=== PATIENT | female | born 1980 | race Caucasian/White ===

== ENCOUNTER 2017-10-17 18:22 | Emergency (ER) | payer OTHER, SELFPAY ==
[2017-10-17 18:22] VITALS: BMI 35.1
[2017-10-17 18:35] VITALS: RESP 18; TEMP 98.7
--- NOTE | 2017-10-17 18:56 | ED PDOC ---
HPI: CCC, URI, Sore Throat Time Seen by Provider: 10/17/17 18:44 Chief Complaint (Nursing): Flu-like Symptoms Chief Complaint (Provider): Flu History Per: Patient Additional Complaint(s): 36 yo female, no PMH, presents to ED with c/o fever, chills, n/v/d, abdominal pain, headache, productive cough with yellow sputum x 3 days. Pt did receive Flu shot this year. No medications taken for symptoms thus far. Past Medical History Reviewed: Historical Data, Nursing Documentation, Vital Signs Vital Signs: Last Vital Signs Temp 98.7 F 10/17/17 18:32 Pulse 64 10/17/17 18:32 Resp 18 10/17/17 18:32 BP 146/52 L 10/17/17 18:32 Pulse Ox 99 10/17/17 19:19 - Surgical History Surgical History: Cholecystectomy - Family History Family History: States: Unknown Family Hx - Living Arrangements Living Arrangements: With Family - Social History Current smoker - smoking cessation education provided: No Alcohol: Social Drugs: Denies - Home Medications Home Medications: Ambulatory Orders Medication Instructions Recorded Docusate Sodium [Colace] 100 mg PO Q8 PRN 12/01/14 Oxycodone HCl/Acetaminophen 1 tab PO Q8 PRN 12/01/14 [Percocet 325 mg-5 mg] - Allergies Allergies/Adverse Reactions: Allergies Allergy/AdvReac Type Severity Reaction Status Date / Time No Known Allergies Allergy Unverified 11/28/14 14:28 Curb-65 Severity Score - CURB-65 Severity Score Confusion: No Bun >19mg/dl (>7mmol/L): No Respiratory Rate greater than/equal to 30: No Systolic BP <90 or Diastolic BP less than/equal 60mmHg: No Age >64: No Curb-65 Score: 0 Percentage 30-day mortality: 0.6% Review of Systems ROS Statement: Except As Marked, All Systems Reviewed And Found Negative Constitutional: Positive for: Fever, Chills, Weakness, Malaise ENT: Positive for: Nose Congestion Respiratory: Positive for: Cough Gastrointestinal: Positive for: Nausea, Vomiting, Abdominal Pain, Diarrhea Physical Exam - Reviewed Nursing Documentation Reviewed: Yes Vital Signs Reviewed: Yes - Physical Exam Appears: Positive for: Non-toxic, No Acute Distress, Uncomfortable Head Exam: Positive for: ATRAUMATIC, NORMAL INSPECTION, NORMOCEPHALIC Skin: Positive for: Normal Color, Warm, DRY Eye Exam: Positive for: EOMI, Normal appearance, PERRL ENT: Positive for: Normal ENT Inspection Neck: Positive for: Normal, Painless ROM Cardiovascular/Chest: Positive for: Regular Rate, Rhythm Respiratory: Positive for: CNT, Normal Breath Sounds Gastrointestinal/Abdominal: Positive for: Normal Exam, Bowel Sounds, Soft Back: Positive for: Normal Inspection Extremity: Positive for: Normal ROM Neurologic/Psych: Positive for: Alert, Oriented - ECG O2 Sat by Pulse Oximetry: 99 Medical Decision Making Medical Decision Making: IV access established and treatment initiated with IVF, Toradol and Zofran Pt afebrile, antipyretics withheld. Case endorsed to LE Killian at 2000 pending diagnostic review and re-eval Disposition - Clinical Impression Clinical Impression: Influenza-like symptoms - Patient ED Disposition Is Patient to be Admitted: Transfer of Care - Disposition Disposition: Transfer of Care Disposition Time: 20:00 Condition: STABLE Forms: [email or web address] [facility] ([place])
[2017-10-17] MEDS ORDERED: Sodium Chloride 0.9% 1,000 ML IV STA ×2 (18:57)
[2017-10-17 19:25] LABS: BASO % 0.7 % (0.0-2.0); EOS % 0.7 % (0.0-4.0); HEMOGLOBIN 10.4 g/dL (12.0-16.0); LYMPH # 2.3 K/uL (1.0-4.3); MEAN CELL VOLUME 89.4 fl (81.0-99.0); MEAN CORPUSCULAR HEMOGLOBIN 29.1 pg (27.0-31.0); MEAN CORPUSCULAR HGB CONC 32.6 g/dL (33.0-37.0); MEAN PLATELET VOLUME 9.4 fl (7.2-11.7); MONO # 0.4 K/uL (0.0-0.8); MONO % 7.8 % (0.0-10.0); NEUT # 2.7 K/uL (1.8-7.0); NEUT % 49.8 % (50.0-75.0); RBC 3.56 Mil/uL (3.80-5.20); RED CELL DISTRIBUTION WIDTH 14.1 % (11.5-14.5); WHITE BLOOD COUNT 5.5 K/uL (4.8-10.8)
[2017-10-17 19:52] LABS: SQUAMOUS EPITHIAL 1 /hpf (0-5); URINE BACTERIA RARE (<OCC); URINE BILIRUBIN NEGATIVE (NEGATIVE); URINE BLOOD MODERATE (NEGATIVE); URINE CLARITY SLIGHTY-CLOUDY (Clear); URINE COLOR STRAW (YELLOW); URINE GLUCOSE (UA) NEG (Normal); URINE LEUKOCYTE ESTERASE TRACE Leu/uL (Negative); URINE NITRATE NEGATIVE (NEGATIVE); URINE PROTEIN >=500 mg/dL (NEGATIVE); URINE UROBILINOGEN 0.2-1.0 mg/dL (0.2-1.0)
[2017-10-17 20:00] LABS: ALBUMIN 2.6 g/dL (3.5-5.0); ALT/SGPT 84 U/L (9-52); AMYLASE 100 U/L (30-110); AST/SGOT 62 U/L (14-36); BLOOD UREA NITROGEN 17 mg/dl (7-17); CALCIUM 7.9 mg/dL (8.4-10.2); GFR AFRICAN-AMERICAN > 60; GFR NON-AFRICAN AMERICAN 51; LIPASE 112 U/L (23-300)
[2017-10-17 20:04] LABS: ALB/GLOB RATIO 0.7 (1.0-2.1)
--- NOTE | 2017-10-17 20:07 | ED PDOC ---
- Laboratory Results Result Diagrams: 10/17/17 19:18 10/17/17 19:18 - ECG ECG: Positive for: Viewed By Il ECG Rhythm: Positive for: Sinus Bradycardia (45bpm) O2 Sat by Pulse Oximetry: 99 - Radiology X-Ray: Viewed By Il X-Ray Interpretation: No Acute Disease - Progress ED Course And Treament: Case endorsed to production underwriter from Abhishek LUJAN pending labs, imaging EXAM: US Abdomen Limited, Right Upper Quadrant CLINICAL HISTORY: The patient is a 36 years female; Pain; Abdominal pain; Epigastric; Prior surgery; Surgery date: 6+ months; Surgery type: S/P cholecystectomy; Additional info: Pain, HX of stones 6:57 PM TECHNIQUE: Real-time ultrasound of the right upper quadrant with image documentation. COMPARISON: No relevant prior studies available. FINDINGS: Liver: 17.6 cm. Normal echotexture. Gallbladder: Cholecystectomy. Common bile duct: Upper limits of normal in size measuring up to 6 mm. Pancreas: Unremarkable as visualized. Right kidney: Normal in size. No hydronephrosis. IMPRESSION: Cholecystectomy. Common bile duct is Upper limits of normal in size measuring up to 6 mm. EXAM: CT Abdomen and Pelvis Without Intravenous Contrast CLINICAL HISTORY: 36 years old, female; Pain; Abdominal pain; Flank; Right; Prior surgery; Surgery date: 6+ months; Surgery type: Gb removed; Additional info: Right abd pain TECHNIQUE: Axial computed tomography images of the abdomen and pelvis without intravenous contrast. All CT scans at this facility use one or more dose reduction techniques, viz.: automated exposure control; ma/kV adjustment per patient size (including targeted exams where dose is matched to indication; i.e. head); or iterative reconstruction technique. Coronal and sagittal reformatted images were created and reviewed. COMPARISON: US - RIGHT UPPER QUADRANT 2017-10-17 19:30 FINDINGS: Limitations: Lack of intravenous contrast. Lower thorax: Minimal atelectasis/scarring. Mild interlobular septal thickening. Trace bilateral pleural effusions. ABDOMEN: Liver: Unremarkable. Gallbladder and bile ducts: Cholecystectomy. No significant ductal dilation. Pancreas: Unremarkable. No ductal dilation. Spleen: No splenomegaly. Adrenals: No mass. Kidneys and ureters: No renal calculi. No hydronephrosis. Stomach and bowel: Segmental areas of probable underdistention of LEFT colon. No definite mural thickening. No obstruction. Appendix: Normal caliber. No definite inflammation. PELVIS: Bladder: Unremarkable. No stones. Reproductive: Probable small left ovarian follicle/cyst. ABDOMEN and PELVIS: Intraperitoneal space: No significant fluid collection. No free air. Mild stranding/fascial thickening about within right upper quadrant about duodenum/head of pancreas. Bones/joints: No acute fracture. Soft tissues: Minimal to mild diffuse stranding within subcutaneous tissues. Tiny ventral hernia containing fat. Vasculature: Unremarkable. No aneurysm. Lymph nodes: No pathologically enlarged lymph nodes. IMPRESSION: 1. No definite CT evidence of urolithiasis. 2. Mild stranding/fascial thickening about right upper quadrant. Correlate with amylase/lipase levels to exclude possibility of pancreatitis. 3. Probable early interstitial edema. Clinical correlation is needed. 4. Incidental/non-acute findings are described above. Patient educated on findings, discharged with instructions to follow up PMD 2-3 days. Rx ibuprofen, flonase, promethazine DM given Fluids. Rest. Return precautions given. Disposition - Clinical Impression Clinical Impression: Viral illness - POA Present On Arrival: None - Disposition Referrals: [facility] [Outside] Disposition: Routine/Home Disposition Time: 00:33 Condition: IMPROVED Prescriptions: Fluticasone Nasal [Flonase] 1 actuation NS BID #1 bottle Ibuprofen [Motrin Tab] 1 tab PO Q6 PRN #20 tab PRN Reason: Pain, Moderate (4-7) Promethazine DM [Phenergan DM Syrup] 5 ml PO Q6 PRN #1 bottle PRN Reason: Cough Instructions: Viral Syndrome (ED) Forms: [employer] (Salvadorean) Print Language: BENGALI
--- NOTE | 2017-10-17 23:51 | CT ---
EXAM: CT Abdomen and Pelvis Without Intravenous Contrast CLINICAL HISTORY: 36 years old, female; Pain; Abdominal pain; Flank; Right; Prior surgery; Surgery date: 6+ months; Surgery type: Gb removed; Additional info: Right abd pain TECHNIQUE: Axial computed tomography images of the abdomen and pelvis without intravenous contrast. All CT scans at this facility use one or more dose reduction techniques, viz.: automated exposure control; ma/kV adjustment per patient size (including targeted exams where dose is matched to indication; i.e. head); or iterative reconstruction technique. Coronal and sagittal reformatted images were created and reviewed. COMPARISON: US - RIGHT UPPER QUADRANT 2017-10-17 19:30 FINDINGS: Limitations: Lack of intravenous contrast. Lower thorax: Minimal atelectasis/scarring. Mild interlobular septal thickening. Trace bilateral pleural effusions. ABDOMEN: Liver: Unremarkable. Gallbladder and bile ducts: Cholecystectomy. No significant ductal dilation. Pancreas: Unremarkable. No ductal dilation. Spleen: No splenomegaly. Adrenals: No mass. Kidneys and ureters: No renal calculi. No hydronephrosis. Stomach and bowel: Segmental areas of probable underdistention of LEFT colon. No definite mural thickening. No obstruction. Appendix: Normal caliber. No definite inflammation. PELVIS: Bladder: Unremarkable. No stones. Reproductive: Probable small left ovarian follicle/cyst. ABDOMEN and PELVIS: Intraperitoneal space: No significant fluid collection. No free air. Mild stranding/fascial thickening about within right upper quadrant about duodenum/head of pancreas. Bones/joints: No acute fracture. Soft tissues: Minimal to mild diffuse stranding within subcutaneous tissues. Tiny ventral hernia containing fat. Vasculature: Unremarkable. No aneurysm. Lymph nodes: No pathologically enlarged lymph nodes. IMPRESSION: 1. No definite CT evidence of urolithiasis. 2. Mild stranding/fascial thickening about right upper quadrant. Correlate with amylase/lipase levels to exclude possibility of pancreatitis. 3. Probable early interstitial edema. Clinical correlation is needed. 4. Incidental/non-acute findings are described above.
[2017-10-18 02:07] VITALS: BP 137/74; PULSE 49; O2SAT 98
--- NOTE | 2017-10-18 10:46 | US ---
HISTORY: pain, hx of stones COMPARISON: None. TECHNIQUE: Sonographic evaluation of the right upper quadrant of the abdomen. FINDINGS: LIVER: Measures 17.6 cm in length. Normal echogenicity of the liver parenchyma. No mass. No intrahepatic bile duct dilatation. GALLBLADDER: Status post cholecystectomy COMMON BILE DUCT: Measures 6 mm. No stones. No dilatation. PANCREAS: Unremarkable as visualized. No mass. No ductal dilatation. RIGHT KIDNEY: Measures 11.3 cm in length. Normal echogenicity. No calculus, mass, or hydronephrosis. AORTA: No aneurysmal dilatation. IVC: Unremarkable. OTHER FINDINGS: None . IMPRESSION: Status post cholecystectomy. No evidence of biliary obstruction. Otherwise unremarkable examination. Preliminary interpretation of this examination was reported by [facility] at 7:55 p.m. one 10/17/2017. There is concurrence of this report with the preliminary interpretation.
--- NOTE | 2017-10-18 13:17 | RAD ---
HISTORY: fever and cough COMPARISON: No prior. TECHNIQUE: Chest PA and lateral FINDINGS: LUNGS: No consolidation PLEURA: No significant pleural effusion identified. No pneumothorax apparent. CARDIOVASCULAR: Heart size top normal. Central bronchovascular markings borderline prominent OSSEOUS STRUCTURES: No significant abnormalities. VISUALIZED UPPER ABDOMEN: Normal. OTHER FINDINGS: None. IMPRESSION: No consolidative infiltrate nonspecific central bronchovascular markings-borderline prominent
--- NOTE | 2017-10-18 16:33 | CARD ---
APPROVED REPORT EKG Measurement Heart [id number] <Conclusion> Sinus bradycardia Cannot rule out Anterior infarct, age undetermined Abnormal ECG
== END 2017-10-18 00:50 | disposition home or self-care (01) ==
LOC: H.ER 18:22
DX: B34.9 Viral infection, unspecified (principal); Z90.49 Acquired absence of other specified parts of digestive tract; Z98.890 Other specified postprocedural states
CPT/HCPCS: 71046; 74176; 76705; 80053; 81003; 81025; 82150; 83690; 84484; 85025; 87804; 93005; 96374; 99284; J1885; J2405; J7040

== ENCOUNTER 2018-09-03 11:36 | Emergency (ER) | payer MEDICAID, SELFPAY ==
[2018-08-30 11:16] VITALS: BMI 35.1
--- NOTE | 2018-09-03 15:04 | OBHP ---
Datetime: 09/03/2018 12:47 IP Adm Impression: Term, intrauterine IP Admit Plan: Observation/Evaluation Admit Comment, IP Provider: 36 yo f 36.5 wk was sent from maternal testing due to noting a deaccelration on NST. Otherwise pt have no complain. Pt state they did US today and said baby good. Pt state that both were complicated by GDM but she was never under medication. pt state th e found that she have protenuria in her urine, and she is following a clinical services director, which state prote barbara is due to kidney, and unrelated to complication. OBGYN: [facility] Allergy none PMH: GDM PSH none PFH none Soical: denies smokin, drinkin or drug use. 12:54 Assessment and plan Pt is not acute distress NST no Deacceration noted plan Will continue monitoring patient and NST US report was ordered, will follow up with result Possible BPP Raghavendra Hernandez PGY1 Addendum by Dr. Fleming: I have evaluated the patient independently and I agree with the above Pelvic Type - PN: Adequate Extremities - PN: Normal Abdomen - PN: Normal Back - PN: Normal Breast - PN: Not Done Lungs - PN: Normal Heart - PN: Normal Thyroid - PN: Normal Neurologic - PN: Normal HEENT - PN: Normal General - PN: Normal FHR - Baseline A Provider: 145 Comments, ACOG Physical Exam: PT is not in acute distress Gestation - Est Wks by US: 36.5 EGA AdmitDate IP: 36.5 Vital Signs Provider: Reviewed; Within Normal Limits IP Chief Complaint: evaluation NICHD Accel Fetus A IP Provider: [id number] FHR Category Provider Fetus A: Category I Genitourinary Exam: Normal DTRs - PN: Normal
--- NOTE | 2018-09-03 15:06 | OBDCSUM ---
Datetime: 09/03/2018 14:05 Discharged to, Provider: Home Follow up at, Provider: [facility] Disch Instr Activity: Normal activity Disch Instr Diet: Regular Discharge Diagnosis, Provider: Term Delivered Discharge Time: 09/03/2018 15:03 Follow up in weeks, Provider: 09/04/2018 Disch Referrals: None Discharge Diagnosis Prov Other: NST
[2018-09-03 18:39] VITALS: BP 102/63; PULSE 83; TEMP 98.1
== END 2018-09-03 14:00 | disposition home or self-care (01) ==
LOC: H.EROB2 11:36
DX: O76 Abnormality in fetal heart rate and rhythm complicating labor and delivery (principal); O09.93 Supervision of high risk pregnancy, unspecified, third trimester; Z3A.36 36 weeks gestation of pregnancy

== ENCOUNTER 2018-09-05 05:41 | Inpatient (IN) | payer MEDICAID, SELFPAY ==
[2018-09-05 07:22] VITALS: BMI 37.3
[2018-09-05 09:08] LABS: SQUAMOUS EPITHIAL 2 /hpf (0-5); URINE BACTERIA RARE (<OCC); URINE BILIRUBIN NEGATIVE (NEGATIVE); URINE BLOOD MODERATE (NEGATIVE); URINE CLARITY SLIGHTY-CLOUDY (Clear); URINE COLOR YELLOW (YELLOW); URINE GLUCOSE (UA) NEG (Normal); URINE LEUKOCYTE ESTERASE NEG Leu/uL (Negative); URINE PROTEIN 100 mg/dL (NEGATIVE); URINE UROBILINOGEN 0.2-1.0 mg/dL (0.2-1.0)
[2018-09-05] MEDS: Lactated Ringer's 1,000 ML IV SCH ×2 (10:15→11:20)
[2018-09-05 11:40] LABS: BLOOD UREA NITROGEN 15 mg/dl (7-17); CALCIUM 8.7 mg/dL (8.4-10.2); GFR NON-AFRICAN AMERICAN > 60
[2018-09-05] MEDS ORDERED: Lactated Ringer's 1,000 ML IV SCH (12:25)
[2018-09-05] MEDS ORDERED: Oxytocin 30 UNIT 30 UNITS/500 ML BAG IV ONE (12:34)
[2018-09-05] MEDS ORDERED: Fentanyl/Bupivacaine HCl 250 ML EPI ONE (12:41)
[2018-09-05] MEDS ORDERED: OXYTOCIN/0.9 % NS 20 UNIT/1,000 ML BAG IV SCH (12:45)
[2018-09-05 13:16] LABS: BASO % 0.3 % (0.0-2.0); EOS % 0.2 % (0.0-4.0); HEMOGLOBIN 12.8 g/dL (12.0-16.0); LYMPH # 1.7 K/uL (1.0-4.3); LYMPH % 20.6 % (20.0-40.0); MEAN CELL VOLUME 89.8 fl (81.0-99.0); MEAN CORPUSCULAR HEMOGLOBIN 29.8 pg (27.0-31.0); MEAN CORPUSCULAR HGB CONC 33.1 g/dL (33.0-37.0); MEAN PLATELET VOLUME 10.7 fl (7.2-11.7); MONO # 0.4 K/uL (0.0-0.8); MONO % 4.5 % (0.0-10.0); NEUT # 6.3 K/uL (1.8-7.0); NEUT % 74.4 % (50.0-75.0); NRBC % 0.2 % (0.0-0.0); RBC 4.31 Mil/uL (3.80-5.20); RED CELL DISTRIBUTION WIDTH 15.4 % (11.5-14.5); WHITE BLOOD COUNT 8.4 K/uL (4.8-10.8)
--- NOTE | 2018-09-05 17:31 | OBDS ---
MATERNAL INFORMATION Provider Comments: Delivered live baby boy at 516 the baby was bulb suctioned on the perineum and tr ansferred to the maternal chest. The cord was clamped and cut 3 vessels noted cord blood was obtained and sent to the lab. Placenta was delivered at 5:22 PM intact. There was a first-degree laceration w hich was repaired with 2-0 Rapide. The quantified blood loss was 100 mL, the mother tolerated the pro cedure well the baby went to the well-baby nursery with Apgars of 9 and 9 weighing 3460 g LABOR SUMMARY EDC: 09/26/2018 00:00 No. Babies in Womb: 1 MEMBRANES Membranes Rupture Method: Artificial Rupture of Membranes: 09/05/2018 14:45 Amniotic Fluid Color: Clear Amniotic Fluid Amount: Small Amniotic Fluid Odor: Normal
[2018-09-05] MEDS ORDERED: Benzocaine/Menthol SPRAY TOP PRN (19:42)
[2018-09-06] MEDS ORDERED: Benzocaine/Menthol SPRAY TOP PRN (05:45)
--- NOTE | 2018-09-06 11:10 | OBPPN ---
Datetime: 09/06/2018 06:12 PP Pain Prov: Within normal limits PP Nausea Prov: Denies PP Flatus Prov: Yes PP Heart Prov: Normal PP Lungs Prov: Normal PP Abdomen/Uterus Prov: Normal PP Progress Prov: Normal PP Comments Phys Exam Prov: see progress note PP Impression Prov: Normal progression PP Plan Prov: Continue present management PP Progress Note Prov: 36 y/o s/p of male baby on 09/05/18 seen and examined at bedside thi s morning. Patient c/o mild back pain /10 this AM controlled w/ pain meds, is getting OOB and ambula ting w/o dizziness. Patient is tolerating regular diet w/o N/V, she is voiding well w/o blood noted i n urine, and she is passing flatus. Patient reports lochia is more than menses in volume. Breastfeedi ng w/o difficulties. Denies GOODMAN, CP, abdominal pain, SOB, fevers, palpitations, or calf pain. O: VS WNL GEN: Sitting comfortably in bed, NAD HEENT: NCAT LUNGS: CTA, no wheezing CVS: RRR, S1, S2 present normal, no murmurs. ABD: No distended, BS +, uterus is at umbilical level BAck:CVA negative for tenderness, mild tenderness at epidural point. EXT: Roma's negative A/P 36 y/o s/p of male baby on 09/05/18 with normal progression, today patient is in her PPD1. -Regular diet -Encourage ambulation -Encourage -PNV 1 tab PO daily -Ibuprofen 600mg 1 tab Q6h prn for mild-mod pain -D/C planning on 09/07/18. Jay Solorzano MD PGY1 Vital Signs Provider PP: Reviewed; Within Normal Limits
[2018-09-06] MEDS ORDERED: guaiFENesin 100 mg/5 ml Syrup UD PO PRN (22:34)
[2018-09-07 06:28] LABS: HEMOGLOBIN 10.1 g/dL (12.0-16.0); MEAN CELL VOLUME 88.6 fl (81.0-99.0); MEAN CORPUSCULAR HEMOGLOBIN 29.7 pg (27.0-31.0); MEAN CORPUSCULAR HGB CONC 33.5 g/dL (33.0-37.0); RBC 3.38 Mil/uL (3.80-5.20); RED CELL DISTRIBUTION WIDTH 15.6 % (11.5-14.5); WHITE BLOOD COUNT 7.7 K/uL (4.8-10.8)
--- NOTE | 2018-09-07 10:36 | OBPPN ---
Datetime: 09/07/2018 06:19 PP Pain Prov: Within normal limits PP Nausea Prov: Denies PP Flatus Prov: Yes PP Breasts Prov: Not Done PP Heart Prov: Normal PP Lungs Prov: Normal PP Abdomen/Uterus Prov: Normal PP Lochia Prov: Normal PP Vulva/Perineum Prov: Not Done PP Extremities Prov: Normal PP Comments Phys Exam Prov: See progress note PP Impression Prov: Normal progression PP Plan Prov: Discharge PP Progress Note Prov: 36 y/o s/p of male baby on 09/05/18 seen and examined at bedside thi s morning. Patient c/o mild back pain but states is less than previous day and is feeling better, pat ient is also c/o occasional cough with clear phlegm production since last night. Patient is getting O OB and ambulating w/o dizziness. Patient is tolerating regular diet w/o N/V, she is voiding well, and she is passing flatus. Patient reports lochia is less than menses in volume already. w /o difficulties. Denies GOODMAN, CP, abdominal pain, sore throat, SOB, fevers, palpitations, or calf pain. O: VS WNL GEN: Sitting comfortably in bed, NAD HEENT: NCAT LUNGS: CTA, no wheezing, no rhonchi CVS: RRR, S1, S2 present normal, no murmurs. ABD: No distended, BS +, uterus is at umbilical level EXT: Roma's negative A/P 36 y/o s/p of male baby on 09/05/18 with normal progression, today patient is in her PPD2. Patient c/o some cough, is afebrile and otherwise asymptomatic. -Regular diet with increase fluid intake -Encourage ambulation -Encourage -Robitusin 100 mg PO Q6h PRN cough -PNV 1 tab PO daily -Ibuprofen 600mg 1 tab Q6h prn for mild-mod pain -D/C planning today, patient was given ED return instruction to go to the ED if she has excessive vag bleeding, fever, pain that does not get relief with pain meds. A MD Rashad PGY1 Addendum by Dr. Fleming: I have evalauted the patient independently and I agree with the above. Disc harge patient home Vital Signs Provider PP: Reviewed; Within Normal Limits
--- NOTE | 2018-09-07 10:36 | OBDCSUM ---
Datetime: 09/07/2018 07:05 Discharged to, Provider: Home Follow up at, Provider: Cory Inman Instr Activity: Normal activity; May be up for meals; May Shower Disch Instr Diet: Regular Discharge Diagnosis, Provider: Term Delivered Discharge Time: 09/07/2018 10:00 Follow up in weeks, Provider: 4-6 wk Disch Referrals: None Disch Activity Restrictions: No exercising; Minimize stair-climbing; No sexual activity; Nothing in vagina - [place], tampons, douche Discharge Comment, Provider: JAEA: 37wk Diagnosis: NVD risk factors: none : 09/05/2018@17:16 Post- Summary: No complications during post- period. Lochia less than menses. Pt able to pass gas, BM, ambulate and pass urine. Tolerate regular diet, Fundus firm below umbilicus level. CBC post-: 12.8/38.7 Discharge Instructions: PNV 1 tab PO daily Ibuprofen 600mg 1 tab prn for mild-mod pain ER precautions: If excessive bleeding or fever without relief from medication, go to ED PT was urged if feeling sad, mood swing, depression, neglect of baby, suicidal thoughts, homicidal thought should go to ER or call 911 for help F/U 4-6 week for PP visit Contraception after Delivery: Undecided
[2018-09-07 18:42] VITALS: BP 113/59; PULSE 82; RESP 20; TEMP 98.1; O2SAT 100
== END 2018-09-07 11:54 | disposition home or self-care (01) | DRG 560 ==
LOC: H.EROB2 05:41 → H.L&D 10:08 → H.OB/GYN 20:38
PROVIDERS: ADMIT Obstetrics & Gynecology Gynecology; ATTEND Obstetrics & Gynecology Gynecology
PROC: 10E0XZZ Delivery of Products of Conception, External Approach (ICD-10-PCS; principal; 2018-09-05)
PROC: 0HQ9XZZ Repair Perineum Skin, External Approach (ICD-10-PCS; 2018-09-05)
PROC: 4A1HXCZ Monitoring of Products of Conception, Cardiac Rate, External Approach (ICD-10-PCS; 2018-09-05)
DX: O24.429 Gestational diabetes mellitus in childbirth, unspecified control (principal); O70.0 First degree perineal laceration during delivery; Z37.0 Single live birth; Z3A.37 37 weeks gestation of pregnancy